=== PATIENT | female | born 1985 | race Caucasian/White ===

== ENCOUNTER 2022-08-21 12:53 | Outpatient (REF) | payer MEDICAID, SELFPAY ==
--- NOTE | 2022-08-21 11:00 | PAPFT_PTH ---
PATIENT: Ivet You LOC: [facility] U#:[id number] AGE/SX: 37/F ROOM: RE08/21/[address]: Sharonda Whitney : 1985 BED: DIS: 08/21/2022 SPEC #: [id number] RECD: 08/21/22 18:29 STATUS: SINTIA REQ #: [id number] SEFERINO: 08/21/22 11:[address]: Sharonda Whitney DEPT: [facility] Cytology RECD BY: Nasreen Mackey Tissues: 1 - CX/ENDOCX FOR PAP SMEARS Procedures: PAP THIN PREP/[facility] Screening HPV DNA PROBE Comments: [id number] (CHLAMYDIA/GC)
[2022-08-22 15:23] LABS: Chlamydia Result Negative (Negative); GC Result Negative (Negative)
== END 2022-08-21 12:54 | disposition home or self-care (01) ==
LOC: NCHCN 12:53
PROVIDERS: PCP Family Medicine; Visit Provider Family Medicine
DX: Z12.4 Encounter for screening for malignant neoplasm of cervix (principal); Z11.51 Encounter for screening for human papillomavirus (HPV); Z11.3 Encounter for screening for infections with a predominantly sexual mode of transmission
CPT/HCPCS: 87491; 87591; 88142; 87624

== ENCOUNTER 2025-03-28 18:33 | Outpatient (REF) | payer MEDICAID, SELFPAY ==
[2025-03-28 21:27] LABS: HCT 38.7 % (36.0-46.0); HGB 13.1 g/dL (11.2-15.7); MCH 30.5 pg (27.0-33.0); MCHC 33.9 % (32.0-36.0); MCV 90 fL (80-95); MPV 9.7 fL (8.0-11.0); Platelet Count 216 10^3/uL (130-400); RDW 11.6 % (11.7-14.6); RDW-SD 37.8 fL; WBC 9.49 10^3/uL (4.4-10.8)
[2025-03-28 21:41] LABS: Iron 68 ug/dL (50-170); Total Iron Binding Capacity 299 ug/dL (250-450); Transferrin Sat 23 % (15-50)
[2025-03-28 21:56] LABS: ALT 28 U/L (14-59); AST 19 U/L (15-37); Albumin 4.2 g/dL (3.4-5.0); Alkaline Phosphatase 106 U/L (46-116); Anion Gap 6.8 mmol/L (3-11); BUN 22 mg/dL (7-18); Bilirubin, Total 0.3 mg/dL (0.2-1.0); CO2 29.2 mmol/L (21.0-32.0); CREATININE 1.1 mg/dL (0.55-1.02); Chloride 102 mmol/L (98-107); Estimated GFR 66.37 (mL/min/1.73m2); Ferritin 60 ng/mL (8-252); Glucose 109 mg/dL (74-106); Potassium 4.3 mmol/L (3.5-5.1); Sodium 138 mmol/L (136-145); TSH (W/Ref FT4) 1.99 uIU/mL (0.36-3.74); Total Protein 7.5 g/dL (6.4-8.2)
== END 2025-03-28 18:34 | disposition home or self-care (01) ==
LOC: NCHCN 18:33
PROVIDERS: PCP Family Medicine; Visit Provider Family Medicine
DX: R53.83 Other fatigue (principal)
CPT/HCPCS: 80053; 85027; 82728; 83540; 83550; 84443